=== PATIENT | female | born 1965 | race Caucasian/White ===

== ENCOUNTER 2019-11-30 18:47 | Emergency (ER) | payer SELFPAY ==
[~2019-11-30] VITALS: Ht 165.1 cm; Wt 123.0 kg
[2019-11-30] MEDS ORDERED: ONDANSETRON 4MG ODT PO ONE (20:00)
[2019-11-30] MEDS ORDERED: ACETAMINOPHEN 325MG TABLET PO ONE (20:15)
[2019-11-30 20:29] VITALS: BP 131/68
== END 2019-11-30 20:55 | disposition home or self-care (01) ==
LOC: ER 18:47
DX: J06.9 Acute upper respiratory infection, unspecified (principal); S86.811A Strain of other muscle(s) and tendon(s) at lower leg level, right leg, initial encounter; S86.812A Strain of other muscle(s) and tendon(s) at lower leg level, left leg, initial encounter; M19.90 Unspecified osteoarthritis, unspecified site; I10 Essential (primary) hypertension; X58.XXXA Exposure to other specified factors, initial encounter; Y93.89 Activity, other specified; Y92.018 Other place in single-family (private) house as the place of occurrence of the external cause
CPT/HCPCS: 99283; Q0162

== ENCOUNTER 2019-12-08 16:15 | Inpatient (IN) | payer OTHER ==
[~2019-12-08] VITALS: Ht 165.1 cm; Wt 113.4 kg
[2019-12-08] MEDS ORDERED: SODIUM CHLORIDE 0.9% 1,000 ML IV ONE (16:50)
[2019-12-08 17:49] LABS: HEMATOCRIT. 37.2 % (36.0-48.0); HEMOGLOBIN. 12.4 g/dL (12.0-16.0); MEAN CORPUSCULAR HEMOGLOBIN 29.3 pg (28.0-32.0); MEAN CORPUSCULAR VOLUME 87.7 fL (81.0-99.0); MEAN PLATELET VOLUME 8.6 fl (7.4-10.4); PLATELET 200 x1000/uL (130-400); RED BLOOD CELL COUNT 4.25 mill/uL (4.2-5.4); RED CELL DISTRIBUTION WIDTH 18.3 % (11.6-14.6)
[2019-12-08 17:52] LABS: CHLORIDE 110 mEq/L (98-107)
[2019-12-08 17:54] LABS: INR 1.1
[2019-12-08 18:12] LABS: PLATELET ESTIMATE NORMAL
[2019-12-08] MEDS ORDERED: ACETAMINOPHEN WITH CODEINE 300/30MG TABLET PO ONE (18:15)
[2019-12-08] MEDS ORDERED: POTASSIUM CHLORIDE 20MEQ TABLET SR PO ONE (18:15)
[2019-12-08] MEDS ORDERED: POTASSIUM CHLORIDE INJ 40 MEQ in DEXT 5% WATER 500 ML IV ONE (18:15)
[2019-12-08] MEDS ORDERED: ONDANSETRON HCL 4MG/2ML INJ IV ONE (20:00)
[2019-12-09 02:13] LABS: CHLORIDE 114 mEq/L (98-107)
[2019-12-09] MEDS ORDERED: FOLI0.4T2 PO (06:54)
[2019-12-09] MEDS ORDERED: LOSA25TA26 PO (06:54)
[2019-12-09] MEDS ORDERED: ASCO-316 PO (06:54)
[2019-12-09] MEDS ORDERED: HYDR12.54 PO (06:54)
[2019-12-09] MEDS ORDERED: ATEN-42 PO (06:54)
[2019-12-09] MEDS ORDERED: PRED-276 PO (06:54)
[2019-12-09 08:00] VITALS: BP 152/66
[2019-12-09] MEDS ORDERED: ACETAMINOPHEN 325MG TABLET PO PRN (08:00)
[2019-12-09] MEDS ORDERED: DOCUSATE SODIUM 100MG CAPSULE PO PRN (08:00)
[2019-12-09] MEDS ORDERED: HYDROMORPHONE HCL/PF 2MG/ML CPJ IV PRN (08:00)
[2019-12-09] MEDS ORDERED: LORAZEPAM 2MG/ML CPJ IV PRN (08:00)
[2019-12-09] MEDS ORDERED: DIPHENHYDRAMINE 50MG/ML VIAL IV PRN (08:00)
[2019-12-09] MEDS ORDERED: LOSARTAN POTASSIUM 50 MG TABLET PO SCH (08:30)
[2019-12-09] MEDS: PREDNISONE 10MG TABLET PO SCH (09:00)
[2019-12-09] MEDS ORDERED: ENOXAPARIN 30MG/0.3ML SYR SUBCUT SCH (09:00)
[2019-12-09] MEDS: PANTOPRAZOLE SODIUM 40 MG/VIAL IV SCH (09:00)
[2019-12-09 10:00] LABS: CLARITY URINE CLOUDY (CLEAR); COLOR URINE YELLOW (YELLOW); KETONES URINE NEGATIVE (NEGATIVE); LEUKOCYTE ESTERASE URINE NEGATIVE (NEGATIVE); NITRITE URINE NEGATIVE (NEGATIVE); OCCULT BLOOD URINE NEGATIVE (NEGATIVE); PROTEIN URINE NEGATIVE (NEGATIVE); SPECIFIC GRAVITY URINE 1.007 (1.005-1.030); UROBILINOGEN URINE 0.2 E.U./dL (0.2-1.0)
[2019-12-09] MEDS ORDERED: DEXT 5% WATER + KCL 40MEQ/L 1,000 ML IV SCH (10:00)
[2019-12-09] MEDS: NEBIVOLOL HCL 5 MG TABLET PO SCH (10:12)
[2019-12-09] MEDS: ASCORBIC ACID 500 MG TABLET PO SCH (10:12)
[2019-12-09] MEDS: ONDANSETRON HCL 4MG/2ML INJ IV PRN ×2 (10:40→18:18)
[2019-12-09 12:00] VITALS: BP 121/49
[2019-12-09 13:11] LABS: BASOPHILS % 0.9 % (0.0-2.0); EOSINOPHILS % 2.9 % (0.0-5.0); HEMATOCRIT. 34.6 % (36.0-48.0); HEMOGLOBIN. 11.5 g/dL (12.0-16.0); MEAN CORPUSCULAR HEMOGLOBIN 29.3 pg (28.0-32.0); MEAN CORPUSCULAR VOLUME 88.3 fL (81.0-99.0); MEAN PLATELET VOLUME 8.9 fl (7.4-10.4); MONOCYTES % 14.3 % (2.0-8.0); NEUTROPHILS % 59.9 % (40.0-76.0); PLATELET 158 x1000/uL (130-400); RED BLOOD CELL COUNT 3.92 mill/uL (4.2-5.4); RED CELL DISTRIBUTION WIDTH 18.3 % (11.6-14.6)
[2019-12-09 13:58] LABS: T4 FREE 1.28 ng/dL (0.76-1.46)
[2019-12-09] MEDS: POTASSIUM CHLORIDE INJ 40 MEQ in DEXTROSE 5% WATER 1,000 ML IV SCH ×2 (14:14→18:12)
[2019-12-09] MEDS: DICYCLOMINE HCL 10MG CAPSULE PO SCH ×2 (14:14→18:08)
[2019-12-09] MEDS ORDERED: INFLUENZA VIRUS VACCINE(AFLURIA) 0.5ML SYR IM ONE (14:30)
[2019-12-09] MEDS ORDERED: PNEUMOCOCCAL 23-VAL P-SAC VAC 0.5 ML IM ONE (14:30)
[2019-12-09 16:00] VITALS: BP 121/59
[2019-12-09 20:00] VITALS: BP 125/61
[2019-12-09] MEDS ORDERED: MAGNESIUM 4 G PREMIX 100 ML IV ONE (22:00)
[2019-12-09] MEDS ORDERED: LEVOFLOXACIN 500MG PREMIX 100 ML IV ONE (22:00)
[2019-12-10] VITALS: BP 103/42
[2019-12-10] MEDS: DICYCLOMINE HCL 10MG CAPSULE PO SCH ×4 (00:50→17:50)
[2019-12-10] MEDS: ONDANSETRON HCL 4MG/2ML INJ IV PRN ×3 (00:56→21:09)
[2019-12-10] MEDS ORDERED: POTASSIUM CHLORIDE INJ 40 MEQ in DEXT 5% WATER 250 ML IV ONE (02:00)
[2019-12-10] MEDS: POTASSIUM CHLORIDE INJ 40 MEQ in DEXTROSE 5% WATER 1,000 ML IV SCH ×3 (02:38→19:40)
[2019-12-10 04:00] VITALS: BP 105/53
[2019-12-10 05:49] LABS: BASOPHILS % 0.9 % (0.0-2.0); EOSINOPHILS % 3.5 % (0.0-5.0); HEMOGLOBIN. 11.2 g/dL (12.0-16.0); LYMPHOCYTES % 19.5 % (20.0-50.0); MEAN CORPUSCULAR HEMOGLOBIN 29.2 pg (28.0-32.0); MEAN PLATELET VOLUME 9.2 fl (7.4-10.4); MONOCYTES % 13.8 % (2.0-8.0); NEUTROPHILS % 62.3 % (40.0-76.0); PLATELET 154 x1000/uL (130-400); RED BLOOD CELL COUNT 3.82 mill/uL (4.2-5.4); RED CELL DISTRIBUTION WIDTH 18.7 % (11.6-14.6)
[2019-12-10 08:00] VITALS: BP 98/49
[2019-12-10] MEDS: NEBIVOLOL HCL 5 MG TABLET PO SCH (09:00)
[2019-12-10] MEDS: PANTOPRAZOLE SODIUM 40 MG/VIAL IV SCH ×2 (09:00→09:47)
[2019-12-10] MEDS: PREDNISONE 10MG TABLET PO SCH (09:47)
[2019-12-10] MEDS: ASCORBIC ACID 500 MG TABLET PO SCH (09:47)
[2019-12-10] MEDS: ENOXAPARIN 40MG/0.4ML SYR SUBCUT SCH (09:48)
[2019-12-10 12:00] VITALS: BP 111/52
[2019-12-10 16:00] VITALS: BP 116/61
[2019-12-10 20:00] VITALS: BP 110/46
[2019-12-10] MEDS: LEVOFLOXACIN 250MG PREMIX 50 ML IV SCH (21:09)
[2019-12-11] VITALS: BP 122/58
[2019-12-11] MEDS: POTASSIUM CHLORIDE INJ 40 MEQ in DEXTROSE 5% WATER 1,000 ML IV SCH ×3 (03:50→21:55)
[2019-12-11 04:00] VITALS: BP 119/54
[2019-12-11 06:20] LABS: BASOPHILS % 0.8 % (0.0-2.0); EOSINOPHILS % 1.4 % (0.0-5.0); HEMATOCRIT. 34.1 % (36.0-48.0); HEMOGLOBIN. 11.1 g/dL (12.0-16.0); LYMPHOCYTES % 20.2 % (20.0-50.0); MEAN CORPUSCULAR HEMOGLOBIN 28.7 pg (28.0-32.0); MEAN PLATELET VOLUME 9.2 fl (7.4-10.4); MONOCYTES % 14.7 % (2.0-8.0); NEUTROPHILS % 62.9 % (40.0-76.0); PLATELET 165 x1000/uL (130-400); RED BLOOD CELL COUNT 3.88 mill/uL (4.2-5.4); RED CELL DISTRIBUTION WIDTH 18.6 % (11.6-14.6)
[2019-12-11 06:30] LABS: CHLORIDE 111 mEq/L (98-107)
[2019-12-11] MEDS: DICYCLOMINE HCL 10MG CAPSULE PO SCH ×4 (06:46→17:42)
[2019-12-11 08:00] VITALS: BP 132/75
[2019-12-11] MEDS: ENOXAPARIN 40MG/0.4ML SYR SUBCUT SCH (09:00)
[2019-12-11] MEDS: PREDNISONE 10MG TABLET PO SCH (10:10)
[2019-12-11] MEDS: PANTOPRAZOLE SODIUM 40 MG/VIAL IV SCH (10:10)
[2019-12-11] MEDS: ASCORBIC ACID 500 MG TABLET PO SCH (10:10)
[2019-12-11] MEDS: NEBIVOLOL HCL 5 MG TABLET PO SCH (10:12)
[2019-12-11 12:00] VITALS: BP 130/64
[2019-12-11] MEDS: POTASSIUM CHLORIDE 20MEQ TABLET SR PO SCH ×2 (12:31→17:42)
[2019-12-11 16:00] VITALS: BP 121/65
[2019-12-11 20:35] VITALS: BP 130/63
[2019-12-11] MEDS: LEVOFLOXACIN 250MG PREMIX 50 ML IV SCH (21:55)
[2019-12-11] MEDS: ALLOPURINOL 300 MG TABLET PO SCH (21:57)
[2019-12-12 00:36] VITALS: BP 103/46
[2019-12-12] MEDS: DICYCLOMINE HCL 10MG CAPSULE PO SCH ×5 (01:35→18:05)
[2019-12-12 04:00] VITALS: BP 104/53
[2019-12-12] MEDS: POTASSIUM CHLORIDE 20MEQ TABLET SR PO SCH ×2 (05:44)
[2019-12-12 08:00] VITALS: BP 111/65
[2019-12-12] MEDS: ENOXAPARIN 30MG/0.3ML SYR SUBCUT SCH ×2 (09:58→20:31)
[2019-12-12] MEDS: PREDNISONE 10MG TABLET PO SCH (09:58)
[2019-12-12] MEDS: NEBIVOLOL HCL 5 MG TABLET PO SCH (09:58)
[2019-12-12] MEDS: ALLOPURINOL 300 MG TABLET PO SCH (09:58)
[2019-12-12] MEDS: POTASSIUM CHLORIDE INJ 40 MEQ in DEXTROSE 5% WATER 1,000 ML IV SCH ×3 (09:59→21:25)
[2019-12-12] MEDS: ASCORBIC ACID 500 MG TABLET PO SCH (09:59)
[2019-12-12] MEDS: FAMOTIDINE 20MG/2ML VIAL IV SCH ×2 (09:59→20:30)
[2019-12-12 12:00] VITALS: BP 120/71
[2019-12-12 14:10] LABS: ANA IFA Negative (.)
[2019-12-12 16:00] VITALS: BP 121/71
[2019-12-12] MEDS: LEVOFLOXACIN 250MG PREMIX 50 ML IV SCH (21:25)
[2019-12-13] VITALS: BP 121/62
[2019-12-13] MEDS: DICYCLOMINE HCL 10MG CAPSULE PO SCH ×2 (01:14→06:01)
[2019-12-13 04:00] VITALS: BP 117/55
[2019-12-13] MEDS: POTASSIUM CHLORIDE INJ 40 MEQ in DEXTROSE 5% WATER 1,000 ML IV SCH (04:16)
[2019-12-13 07:17] LABS: BASOPHILS % 1.2 % (0.0-2.0); EOSINOPHILS % 2.4 % (0.0-5.0); HEMATOCRIT. 34.3 % (36.0-48.0); LYMPHOCYTES % 29.4 % (20.0-50.0); MEAN CORPUSCULAR HEMOGLOBIN 29.1 pg (28.0-32.0); MEAN CORPUSCULAR VOLUME 90.6 fL (81.0-99.0); MEAN PLATELET VOLUME 9.8 fl (7.4-10.4); MONOCYTES % 12.7 % (2.0-8.0); NEUTROPHILS % 54.3 % (40.0-76.0); PLATELET 177 x1000/uL (130-400); RED BLOOD CELL COUNT 3.79 mill/uL (4.2-5.4)
[2019-12-13 07:40] LABS: CHLORIDE 112 mEq/L (98-107)
[2019-12-13 08:20] VITALS: BP 105/53
[2019-12-13] MEDS: NEBIVOLOL HCL 5 MG TABLET PO SCH (09:00)
[2019-12-13] MEDS: PREDNISONE 10MG TABLET PO SCH (09:56)
[2019-12-13] MEDS: ASCORBIC ACID 500 MG TABLET PO SCH (09:56)
[2019-12-13] MEDS: ENOXAPARIN 30MG/0.3ML SYR SUBCUT SCH (09:56)
[2019-12-13] MEDS: ALLOPURINOL 300 MG TABLET PO SCH (09:57)
[2019-12-13] MEDS: FAMOTIDINE 20MG/2ML VIAL IV SCH (10:02)
[2019-12-13 12:02] VITALS: BP 96/51
[2019-12-13 13:04] VITALS: BP 105/53
== END 2019-12-13 14:18 | disposition home or self-care (01) | DRG 690 ==
LOC: ER 16:15 → 6WST 18:09 → SUPCPDRO 18:49 → ENRESERV 12-09 05:08
PROVIDERS: ADMIT Internal Medicine Rheumatology; ATTEND Internal Medicine Rheumatology
DX: N39.0 Urinary tract infection, site not specified (principal); E46 Unspecified protein-calorie malnutrition; E87.0 Hyperosmolality and hypernatremia; Z68.41 Body mass index [BMI] 40.0-44.9, adult; E87.6 Hypokalemia; I10 Essential (primary) hypertension; K59.00 Constipation, unspecified; M06.9 Rheumatoid arthritis, unspecified; N28.9 Disorder of kidney and ureter, unspecified; Z82.49 Family history of ischemic heart disease and other diseases of the circulatory system; Z82.5 Family history of asthma and other chronic lower respiratory diseases; Z83.3 Family history of diabetes mellitus
CPT/HCPCS: 36415; 71045; 74176; 80048; 80053; 81003; 82533; 83735; 84439; 84443; 84550; 85025; 86256; 90686; 90732; 93005; 93970; 99285; C9113; J1650; J1956; J2405; J3475; J3480; J3490; J7030; J7060; J7070; J7512